=== PATIENT | male | born 1955 | race Caucasian/White ===

== ENCOUNTER → 2017-04-08 | Outpatient (REF) | LOC: ZLAB.WCH 14:50 | DX: Z01.89 Encounter for other specified special examinations (principal) | CPT/HCPCS: G0103 ==

== ENCOUNTER → 2018-05-07 | Outpatient (REF) ==
[2018-05-07 11:31] LABS: VALPROIC ACID (DEPAKENE) 58.9 ug/mL (50.0-100.0)
[2018-05-07 11:55] LABS: PSA-TOTAL 0.56 ng/mL (0-4)
== END ==
LOC: ZLAB.WCH 11:05
PROVIDERS: Family Medicine
DX: Z01.89 Encounter for other specified special examinations (principal)
CPT/HCPCS: G0103

== ENCOUNTER → 2018-08-16 | Outpatient (REF) | LOC: ZLAB.WCH 16:26 | DX: Z01.89 Encounter for other specified special examinations (principal) ==

== ENCOUNTER → 2018-11-07 | Outpatient (REF) | LOC: ZLAB.WCH 13:52 | DX: Z01.89 Encounter for other specified special examinations (principal) | CPT/HCPCS: G0103 ==

== ENCOUNTER → 2018-11-08 | Outpatient (REF) ==
[2018-11-08 19:17] LABS: ALBUMIN 3.6 gm/dL (3.5-5.0); BILIRUBIN,TOTAL 0.5 mg/dL (0.0-1.0); CALCIUM 9.3 mg/dL (8.4-10.2); POTASSIUM 4.2 mmol/L (3.4-5.0); TOTAL PROTEIN 6.2 gm/dL (6.4-8.2)
== END ==
LOC: ZLAB.WCH 19:06
PROVIDERS: Urology
DX: Z01.89 Encounter for other specified special examinations (principal)

== ENCOUNTER → 2020-08-19 | Outpatient (REF) | LOC: ZLAB.WCH 17:04 | DX: Z01.89 Encounter for other specified special examinations (principal) ==

== ENCOUNTER → 2024-04-04 | Outpatient (CLI) | payer MEDICARE ==
[2024-04-04 13:13] LABS: BASO % 0.4 % (0.0-2.0); EOS % 0.6 % (0.0-4.0); HEMATOCRIT 42.8 % (42.0-52.0); HEMOGLOBIN 15.3 g/dl (13.5-18.0); LYMPH # 0.7 K/mm3 (1.2-3.4); LYMPH % 12.8 % (20.0-51.0); MEAN CELL VOLUME 87 fl (80.0-100.0); MEAN CORPUSCULAR HEMOGLOBIN 31 pg (27-31); MEAN CORPUSCULAR HGB CONC 36 g/dl (33.0-37.0); MEAN PLATELET VOLUME 10.4 fl (7.4-10.4); MONO # 0.6 K/mm3 (0.1-0.6); MONO % 11.8 % (1.7-9.3); PLATELET COUNT 178 K/mm3 (130-400); RED BLOOD COUNT 4.91 M/mm3 (4.20-5.60); REDCELL DISTRIBUTION WIDTH-CV 12.5 % (11.5-14.5)
[2024-04-04 13:27] LABS: ALANINE AMINOTRANSFERASE < 6 U/L (0-55); ALKALINE PHOSPHATASE 123 U/L (40-150); ANION GAP 11 mmol/L (7-16); AST,SGOT 20 U/L (5-34); BILIRUBIN,TOTAL 0.7 mg/dL (0.2-1.2); BLOOD UREA NITROGEN 10 mg/dL (8-26); CALCIUM 9.4 mg/dL (8.4-10.2); CHLORIDE 105 mEq/L (98-107); CREATININE, serum 1.08 mg/dL (0.72-1.25); GLUCOSE 94 mg/dL (70-99); POTASSIUM 3.7 mEq/L (3.5-4.5); SODIUM 137 mEq/L (136-145); TOTAL PROTEIN 6.8 g/dl (6.2-8.1)
== END ==
LOC: COL.RAD 12:27
PROVIDERS: Student in an Organized Health Care Education/Training Program
DX: K59.01 Slow transit constipation (principal); R14.0 Abdominal distension (gaseous)